=== PATIENT | male | born 1985 | race Hispanic/Latino ===

== ENCOUNTER 2024-12-26 12:51 | Emergency (ER) | payer BC, SELFPAY ==
--- NOTE | ~2024-12-26 | XR_ITS ---
EXAMINATION: XR chest 2V DATE: 12/26/2024 13:34 INDICATION: Cough and fever TECHNIQUE: PA and lateral views of the chest were obtained. COMPARISON: None FINDINGS: The lungs are clear with no focal airspace opacities, pulmonary edema, pleural effusion or pneumothorax. The cardiomediastinal silhouette is normal. Mild to moderate thoracic spondylosis. IMPRESSION: 1. No acute cardiopulmonary disease. Reviewed, dictated and finalized at location A.
--- OUTSIDE RECORDS SUMMARY | 2024-12-26 12:55 | XMS_ITS | Clinical Summary ---
Author Organization [facility] Address [address] [place] [id number] Care Team Providers Care Sports Instructor Name Role Phone NitaKenny vega Primary Care Provider Miryam Garvey MD Unavailable [phone] Allergies No known active allergies Medications lisinopriL (PRINIVIL,ZESTR IL) 40 mg tablet Take 1 tablet (40 mg total) by mouth daily 20 tablet 1 06/19/2022 Active amitriptyline (ELAVIL) 25 mg tablet Take 1 tablet (25 mg total) by mouth nightly 30 tablet 1 06/19/2022 Active meloxicam (MOBIC) 7.5 mg tablet Take 1 tablet (7.5 mg total) by mouth daily as needed for pain for up to 15 days 15 tablet 05/04/2023 Active Immunizations Immunization Administration Dates Next Due Hep A, Pediatric 10/20/2010,04/22/2010 Hep B, Adolescent or Pediatric 10/20/2009,2009,04/22/2009 Tdap 01/09/2011 Medical History Medical History Date Comments Hypertension Family History Medical History Relation Name Comments Coronary artery disease Mother Roberto nary artery disease; Relation Name Status Comments Mother Social History Tobacco Use Types Packs/Day Years Used Date Smoking Tobacco: Never Tobacco Cessation:Counseling Given: Not Answered Alcohol Use Standard Drinks/Week Comments Yes 0 (1 standard drink = 0.6 oz pur e alcohol) Personal Safety Answer Date Recorded Getting School Help Needed Denies 05/06 Sex and Gender Information Value Date Recorded Sex Assigned at Not on file Legal Sex Male 2:[address] Gender Identity Not on file Sexual Orientation Not on file Obstetrics History Last Filed Vital Signs Vital Sign Reading Time Taken Comments Blood Pressure 134/93 05/04/2023 6:[address] Pulse 68 05/04/2023 6:[address] Temperature 37.7 C (99.8 F) 05/04/2023 2:[address] Respiratory Rate 18 05/04/2023 6:[address] Oxygen Saturation 98% 05/04/2023 6:[address] Inhaled Oxygen Concentration - - Weight 121.1 kg (266 lb 15.6 oz) 05/04/2023 2:[address] Height 175.3 cm (5' 9) 05/04/2023 2:[address] Body Mass Index 39.43 05/04/2023 2:[address] Plan of Treatment Health Maintenance Due Date Last Done Comments Depression Screening 1985 Hepatitis C Screening 1985 Varicella Vaccines (1 of 2 - 13+ 2-dose series) 08/06/1999 Regular Well Visit/Exam 18-64 2004 HPV Vaccines (1 - 3-dose SCD M series) 2013 DTaP/Tdap/Td Vaccine (2 - Td or Tdap) 01/09/2021 01/09/2011 Influenza Vaccine (#1) 2024 Hepatitis B Screening Completed 10/20/2009 , 05/23/2009, 04/22/2009 Pneumococcal vaccine <65 Aged Out No longer eligible based on patient's age to complete [place] [address] [place] [address] [facility] [place] [place] [address] [id number] [employer] [facility] [employer] WORK[employer] COMPENSATION GENERIC Care Teams Sports Instructor Relationship Specialty Start Date End Date Kenny Moya DO [address] [place] [address] PCP - General Occupational Medicine 05/04/23 Miryam Garvey MD [address] [facility] [address] [place] [address] 05/04/23
--- OUTSIDE RECORDS SUMMARY | 2024-12-26 12:55 | XMS_ITS | Clinical Summary ---
Author Organization [facility] Address [address] [place] [address] Care Team Providers Care Mushroom Cultivator Name Role Phone Kathleen Liang NP Primary Care Provider Allergies No known active allergies Medications metoprolol succinate ER (TOPROL-XL) 100 MG 24 hr tabletIndications :Essential hypertension Take 1 tablet (100 mg total) by mouth daily. 90 tablet 3 06/08/2024 Active lisinopril-hydroC HLOROthiazide (ZESTORETIC) 20-25 MG tabletIndications :Essential hypertension Take 1 tablet by mouth daily. 90 tablet 3 06/08/2024 Active lisinopril (PRINIVIL) 20 MG tabletIndications :Essential hypertension Take 1 tablet (20 mg total) by mouth daily. 90 tablet 3 06/08/2024 Active amLODIPine (NORVASC) 10 MG tabletIndications :Essential hypertension Take 1 tablet (10 mg total) by mouth daily. 90 tablet 3 06/08/2024 Active Active Problems Problem Noted Date Diagnosed Date High blood pressure 12/16/2016 Family History Medical History Relation Comments Diabetes Mother Relation Status Comments Mother Social History Tobacco Use Types Packs/Day Years Used Date Smoking Tobacco: Never Smokeless Tobacco: Never Tobacco Cessation:Counseling Given: No Comments:Used to smoke as a teen Alcohol Use Standard Drinks/Week Comments Never 0 (1 standard drink = 0.6 oz pur e alcohol) PHQ-2 Answer Date Recorded Patient Health Questionnaire-2 Score 0 06/08/2024 Sex and Gender Information Value Date Recorded Sex Assigned at Male 01/10/2024 8:55 AM CDT Legal Sex Male 1:06 PM CDT Gender Identity Male 01/10/2024 8:55 AM CDT Sexual Orientation Straight 01/10/2024 8: 55 AM CDT Last Filed Vital Signs Vital Sign Reading Time Taken Comments Blood Pressure 159/89 06/08/2024 3:05 PM RATE CLERK Pulse 74 06/08/2024 3:05 PM RATE CLERK Temperature 37.2 C (98.9 F) 06/08/2024 3:05 PM RATE CLERK Respiratory Rate 16 06/08/2024 3:05 PM RATE CLERK Oxygen Saturation 96% 06/08/2024 3:05 PM RATE CLERK Inhaled Oxygen Concentration - - Weight 124.7 kg (275 lb) 06/08/2024 3:05 PM RATE CLERK Height 177.8 cm (5' 10) 06/08/2024 3:05 PM RATE CLERK Body Mass Index 39.46 06/08/2024 3:05 PM RATE CLERK Plan of Treatment Upcoming Encounters Date Type Department Care Team (Late st Contact Info) Description 01/19/2025 11:20 AM CDT Office Visit [facility] Family [facility] Internal Medicine [address] [phone] [place] [address] [facility] [address] [facility] [place] [address] Health Maintenance Due Date Last Done Comments Annual Physical 1989 HPV Vaccines (1 - 3-dose SCD M series) 2013 COVID-19 Vaccine (1 - 2023-2 5 season) 2025 Postponed from 12/21 (Patient Refused) DTaP, Tdap and Td Vaccines ( 1 - Tdap) 01/09/2025 Postponed from 08/05 (Patient Refused) Hepatitis B Vaccines (1 of 3 - 19+ 3-dose series) 01/09/2025 Postponed from 08/05 (Patient/Guardian Refusal) Hepatitis C 01/09/2054 Postponed from 2004 (Patient Refused) PHQ-2 (Physician [place]) Completed 06/08/2024 Meningococcal B Vaccine Aged Out No l onger eligible based on patient's age to complete this topic Meningococcal Vaccine Aged Out No doyle emir eligible based on patient's age to complete this topic Pneumococcal Vaccine: Pediat rics (0 to 5 Years) and At-Risk Patients (6 to 49 Years) Aged Out No longer eligi ble based on patient's age to complete this topic RSV Immunizations Under 20 Months Aged Out No longer eligible based on patient's age to complete this topic Insurance [facility] Care Teams Mushroom Cultivator Relationship Specialty [place] [address] [address] PCP - General Nurse Practitioner Family 12/03/23
--- NOTE | 2024-12-26 13:00 | ED_ITS ---
HPI - General Adult General Chief complaint: Upper Respiratory Infection Stated complaint: Cough Time Seen by Provider: 12/26/24 13:01 Source: patient Mode of arrival: ambulatory Limitations: no limitations History of Present Illness HPI narrative: 39-year-old male patient presents [facility] with complaints of cold symptoms past 4 days. Patient states he has not been measuring his temperature but thinks he has had a fever because he has had some chills and sweats. Patient states he has had a cough and at times shortness of breath especially when going up stairs. Patient states he has been taking [id number] Leanna- [place] cold and flu and an antihistamine with not much relief. Patient states he has had some diarrhea and 2 episodes of vomiting with coughing. Patient states he has had a runny nose, congestion and slight ear pain. Related Data Home Medications ?Medication ?Instructions ?Recorded ?Confirmed ?Last Taken ?Type amlodipine 10 mg tablet mg 12/26/24 Unknown History lisinopril 20 tablet 12/26/24 Unknown His tory mg-hydrochlorothiazide 25 mg tablet metoprolol succinate 100 mg mg PO 12/26/24 Unknown Hi story tablet,extended release 24 hr Allergies Allergy/AdvReac Type Severity Reaction Status Date / Time No Known Allergies Allergy Verified 12/26/24 12:55 Review of Systems Review of Systems: CONSTITUTIONAL: Positive subjective fever, chills, and sweats. EYES: Denies visual changes, redness, or discharge. ENT: positive rhinorrhea, congestion, denies sore throat, positive right otalgia. CARDIOVASCULAR: Denies chest pain, palpitations, or edema. RESPIRATORY: pots cough with intermittent dyspnea. GASTROINTESTINAL: Denies abdominal pain, nausea, vomiting, or diarrhea. GENITOURINARY: Denies dysuria or hematuria. SKIN: Denies rash or itching. MUSCULOSKELETAL: Denies back pain, joint pain, or myalgia. NEUROLOGIC: Denies headache, numbness, or weakness. positive fatigue PSYCHIATRIC: Denies anxiety or depression. PMFSH Past Medical History Medical History (Updated 12/26/24 @ 14:01 by RADHA Milligan) Eczema Hypertension Comments At the time of my signature I agree with nursing past medical history, surgical, social, and family history. There is no relevant family history pertinent to the presenting complaint. Exam Narrative: GENERAL: Well-appearing, well-nourished, and in no acute distress. HEAD: Normocephalic, atraumatic. EYES: PERRLA and EOMI. ENT: Nares with erythema edema noted bilaterally, patient is sniffling often during exam. no Active rhinorrhea or epistaxis. Mucous membranes moist. posterior pharynx no erythema, tonsillar enlargement, exudates or lesions present. Bilateral TMs are clear there is apparent eczema noted to the inside of bilateral canals as well as eczema patches noted behind the left ear NECK: Supple. No lymphadenopathy CHEST: patient does have very slight expiratory wheeze noted to the lower lobes on auscultation. patient is talking and slight broken sentences no tripoding noted. HEART: Regular rate and rhythm. No murmur heard. Normal peripheral pulses. ABDOMEN: Soft, nontender, nondistended, normal active bowel sounds. EXTREMITIES: Normal range of motion. No edema. SKIN: Warm, dry, no rash. NEURO: No focal deficits. Alert and oriented x3. Course Course Level of Care: Express Care Visit Reevaluation(s) Reevaluation #1: re-evaluated patient notified him that the x-ray is negative for any acute pneumonia. Discussed with patient this is most likely a viral upper respiratory infection however given the cough and some shortness of breath we will go ahead and discharge him home with some oral steroids, inhaler and Tessalon Perles for the cough. Discussed with patient highly recommend to be taking some vitamins to help this to the [place] system to get over the viral infection quicker and should be taking zuzm-khl-bwytmes Coricidin due to his blood high blood pressure. Patient is aware the plan of care denies any other questions or concerns at this time. Date: 12/26/24 Time: 14:06 Vital Signs Vital signs: Vital Signs Temperature 36.3 C L 12/26/24 13:06 Pulse Rate 86 12/26/24 13:06 Respiratory Rate 18 12/26/24 13:06 Blood Pressure 150/101 H 12/26/24 13:06 Pulse Oximetry 99 12/26/24 13:06 Oxygen Delivery Room Air 12/26/24 13:06 Temperature 36.3 C L 12/26/24 13:06 Pulse Rate 86 12/26/24 13:06 Respiratory Rate 18 12/26/24 13:06 Blood Pressure 150/101 H 12/26/24 13:06 Pulse Oximetry 99 12/26/24 13:06 Oxygen Delivery Room Air 12/26/24 13:06 Vital signs reviewed. Medical Decision Making MDM Narrative Medical decision making narrative: Discussed with patient that his point of care swabs for flu and COVID are negative however given his shortness of breath and some abnormal lung sounds we will go ahead and do an x-ray to rule out any pneumonia. Differential Diagnosis Differential Diagnosis: Differential diagnosis: Allergic rhinitis, chronic sinusitis, tonsillitis, acute sinusitis, infectious mononucleosis, seasonal influenza, pertussis, diphtheria, meningococcal disease, viral syndrome, viral bronchitis, RSV, COVID- 19 Vital Signs Vital Signs: Vital Signs Temperature 36.3 C L 12/26/24 13:06 Pulse Rate 86 12/26/24 13:06 Respiratory Rate 18 12/26/24 13:06 Blood Pressure 150/101 H 12/26/24 13:06 Pulse Oximetry 99 12/26/24 13:06 Oxygen Delivery Room Air 12/26/24 13:06 Temperature 36.3 C L 12/26/24 13:06 Pulse Rate 86 12/26/24 13:06 Respiratory Rate 18 12/26/24 13:06 Blood Pressure 150/101 H 12/26/24 13:06 Pulse Oximetry 99 12/26/24 13:06 Oxygen Delivery Room Air 12/26/24 13:06 Lab Data Labs: Lab Results 12/26/24 Range/Units 13:21 POC Influenza A Ag Negative (Negative) POC Influenza B Ag Negative (Negative) POC SARS CoV-2 Ag Negative (Negative) Imaging Data Radiologist's impression: [address] [id number] XRay Report Signed Patient: Mikhail Hermosillo : 1985 MR#: [id number] Age: 39 Acct:[id number] Loc: [facility] ADM Date: 12/26/24Attending Dr: Ordering Physician: Jewels Raman APRN Date of Service: 12/26/24 Procedure(s): XR chest 2V Accession Number(s): [id number] cc: Azul, Kathleen Bhatti POULTRYMAN; Jewels Raman APRN~ EXAMINATION: XR chest 2V DATE: 12/26/2024 13:34 INDICATION: Cough and fever TECHNIQUE: PA and lateral views of the chest were obtained. COMPARISON: None FINDINGS: The lungs are clear with no focal airspace opacities, pulmonary edema, pleural effusion or pneumothorax. The cardiomediastinal silhouette is normal. Mild to moderate thoracic spondylosis. IMPRESSION: 1. No acute cardiopulmonary disease. Reviewed, dictated and finalized at location A. Critical Care Time Critical Care Time Critical Care Time: No Discharge Plan Discharge Clinical Impression: Viral URI with cough Patient Disposition: Home Condition: Stable Instructions: Antibiotic Form, Viral Syndrome (ED) Additional Instructions: Viral illness may last between 7-12days; antibiotic is NOT recommended at this time. may take cquj-orf-svirovo vitamins such as vitamin-C (2000mg in AM and 2000mg in PM) , the vitamin-D (4000iu daily) and zinc (200mg daily) to help shorten the course of the viral illness. Due to your high blood pressure please make sure that your only taking over-t he-counter Coricidin for your symptoms. Recommend antihistamine such as Benadryl at night time and Claritin/Zyrtec/Felipa during the day please take oral steroids in the morning with food Use inhaler as needed for cough, wheezing, shortness of breath or chest tightness. Also, recommend symptomatic treatment includes: rest, fluids, and increase humidity of the air at home. Recommend Acetaminophen or nonsteroidal anti-inflammatory agents (NSAIDs) as directed in the bottle to reduce fever and/pain/headache. Avoid smoking/second-hand smoke. Limit visits to areas with large crowds. Please schedule a follow-up visit with your personal physician for further evaluation and treatment within 3-5days. Including recheck and discussion of your blood pressure. If your symptoms persist, change or worsen significantly before you can contact your personal physician then please, without delay, go to the emergency department for further evaluation. Patient Language: Citizen Of [place] Prescriptions: New benzonatate 200 mg capsule 200 mg PO TID PRN (Reason: cough) 10 Days Qty: 30 0RF prednisone 20 mg tablet 40 mg PO DAILY 5 Days Qty: 10 0RF albuterol sulfate [Ventolin HFA] 90 mcg/actuation HFA aerosol inhaler 2 puff INHALATION .Q4 hours PRN (Reason: cough) Qty: 18 0RF No Action metoprolol succinate 100 mg tablet extended release 24 hr PO amlodipine 10 mg tablet lisinopril-hydrochlorothiazide 20-25 mg tablet Follow-up/Referrals: Azul,Kathleen Bhatti APRN [Primary Care Provider, [facility]] Time of Disposition: 14:02
[2024-12-26 13:06] VITALS: BP 150/101; PULSE 86; RESP 18; TEMP 36.3; O2SAT 99
[2024-12-26 13:22] LABS: EDCOVIDSCREEN Negative (Negative); EDINFLUASCREEN Negative (Negative); EDINFLUBSCREEN Negative (Negative)
== END 2024-12-26 14:04 | disposition home or self-care (01) ==
PROVIDERS: Emergency Provider Nurse Practitioner Family; PCP Nurse Practitioner Family
DX: J06.9 Acute upper respiratory infection, unspecified (principal); R05.9 Cough, unspecified; Z20.822 Contact with and (suspected) exposure to COVID-19; I10 Essential (primary) hypertension
CPT/HCPCS: 71046; 87426; 87804; 99203; G0463